=== PATIENT | male | born 1960 | race Caucasian/White ===

== ENCOUNTER 2017-04-23 07:33 | Day surgery (SDC) | payer OTHER ==
[~2017-04-23] VITALS: Ht 185.4 cm; Wt 86.2 kg
[~2017-04-23 07:33] MED LIST: Bactrim 400-801 EACH PO
[2017-04-23] MEDS ORDERED: DIAZ10 (08:19)
[2017-04-23] MEDS ORDERED: TRAM50 (08:19)
== END 2017-04-23 09:40 | disposition home or self-care (01) ==
LOC: ORSCSDS 07:33
PROVIDERS: Surgery
PROC: 0DJD8ZZ Inspection of Lower Intestinal Tract, Via Natural or Artificial Opening Endoscopic (ICD-10-PCS; principal; 2017-04-23 08:45)
DX: Z12.11 Encounter for screening for malignant neoplasm of colon (principal); F32.9 Major depressive disorder, single episode, unspecified; Z87.891 Personal history of nicotine dependence; Z79.899 Other long term (current) drug therapy
CPT/HCPCS: J7120

== ENCOUNTER 2018-04-22 19:24 | Emergency (ER) | payer MEDICARE, OTHER ==
[~2018-04-22] VITALS: Ht 185.4 cm; Wt 83.0 kg
[~2018-04-22 19:24] MED LIST changes: +DIAZ10; +TRAM50
[2018-04-22] MEDS ORDERED: Amitriptyline H10 MG PO (21:18)
== END 2018-04-22 21:25 | disposition home or self-care (01) ==
LOC: ER 19:24
DX: G54.6 Phantom limb syndrome with pain (principal); Z88.0 Allergy status to penicillin; Z79.899 Other long term (current) drug therapy; Z87.891 Personal history of nicotine dependence
CPT/HCPCS: 99283

== ENCOUNTER 2020-04-17 05:59 | Day surgery (SDC) | payer OTHER ==
[~2020-04-17] VITALS: Ht 185.4 cm; Wt 78.2 kg
[~2020-04-17 05:59] MED LIST changes: +Amitriptyline H10 MG PO; -DIAZ10; +DIAZ10 PO
[2020-04-17] MEDS ORDERED: Nexium40 MG PO (06:16)
[2020-04-17] MEDS ORDERED: OMEP20ER PO (06:17)
[2020-04-17] MEDS ORDERED: OXYC5 PO (06:17)
[2020-04-17] MEDS ORDERED: Lyrica25 MG PO (06:18)
--- NOTE | 2020-04-17 06:52 | NUR ---
Ambulatory in Day Surgery History, Chart, Medications and Allergies reviewed before start of procedure. Lungs clear T/O to Auscultation. Pre-Op teaching done. Pt verbalizes understanding.
--- NOTE | 2020-04-17 09:28 | NUR ---
TOLERATING PO PUDDING AND JUCIE WELL. RATES PAIN 4/10 MOSTLY TO NECK, SORENESS. GAVE PERCOCET PER ORDER.
--- NOTE | 2020-04-17 09:55 | NUR ---
0950 PT DCD HOME WITH INSTUCTIONS AND HARD COPY RX Discharge instructions reviewed with patient. Patient verbalizes understanding. Copy given to patient to take home. Patient up to Ambulate independently. Gait steady. Patient States Post-Procedure ride home has been arranged. Discharged via wheelchair to private car for ride home.
[2020-05-22] MEDS ORDERED: Nexium40 MG PO (09:15)
[2020-05-22] MEDS ORDERED: DEXA4 PO (09:15)
[2020-05-22] MEDS ORDERED: Prednisone10 MG PO (09:15)
== END 2020-04-17 22:45 | disposition home or self-care (01) ==
LOC: ORSCMMR 05:59 → ORD 07:30 → ORSCMMR 22:45
PROVIDERS: Surgery
PROC: B5131ZA Fluoroscopy of Right Jugular Veins using Low Osmolar Contrast, Guidance (ICD-10-PCS; principal; 2020-04-17 07:30)
PROC: 05HM33Z Insertion of Infusion Device into Right Internal Jugular Vein, Percutaneous Approach (ICD-10-PCS; principal; 2020-04-17 07:30)
DX: C61 Malignant neoplasm of prostate (principal); I10 Essential (primary) hypertension; Z79.899 Other long term (current) drug therapy
CPT/HCPCS: 77001; A9270; C1788; J0690; J1642; J2250; J2405; J2704; J3010; J7120

== ENCOUNTER 2020-05-22 14:00 | Day surgery (SDC) | payer OTHER ==
[~2020-05-22] VITALS: Ht 185.4 cm; Wt 71.0 kg
[~2020-05-22 14:00] MED LIST changes: +DEXA4 PO; +Lyrica25 MG PO; +Nexium40 MG PO; +OMEP20ER PO; +OXYC5 PO; +Prednisone10 MG PO
--- NOTE | 2020-05-22 15:30 | NUR ---
patient returned to [facility] recovery room. alert and oriented. states that He is comfortable. Neph tube to straight drainage bag with red tinged fluid.
--- NOTE | 2020-05-22 15:56 | NUR ---
patient sitting up having a meal. denies discomfort. neph tube to straight drainage. red tinged fluid in bag.
--- NOTE | 2020-05-22 17:52 | NUR ---
DISCHARGE INSTRUCTIONS GIVEN TO PATIENT. SPOKE TO ADILIA AT DR KIRKPATRICK OFFICE. PATIENT TO CALL HER FOR FURTHER RESOURCES FOR FOLLOW UP CARE FOR HIS NEWLY PLACES NEPH TUBE. PATIENT STATES THAT HE DID NOT RECEIVE ANY INFORMATION FROM HIS DOCTOR IN [place] ON HOW TO CARE FOR IT/HIMSELF POST PROCEDURE. DRESING TO NEPH TUBE INSERTION SITE DRY AND INTACT. SITE SOFT AND NONTENDER. PLACED DRAINAGE BAG TO LEFT LEG WITH LEG STRAP. DRAINAGE IN BAG IS BLOOD TINGED. PATIENT VERBALIZED UNDERSTANDING OF DISCHARGE INSTRUCTIONS AND PRECAUTIONS. HE VERBALIZED UNDERSTANDING ON HOW TO CARE FOR THE NEPH TUBE SYSTEM SHORT TERM UNTILL HE CONTACTS ADILIA. PATIENT TRANSFERRED TO CAR VIA WHEEL CHAIR. HE HAS NO FURTHER QUESTIONS AT THIS TIME. FRIEND IS DRIVING HIM HOME.
== END 2020-05-22 22:58 | disposition home or self-care (01) ==
LOC: MHTC 14:00
DX: N13.30 Unspecified hydronephrosis (principal); C61 Malignant neoplasm of prostate; Z79.899 Other long term (current) drug therapy
CPT/HCPCS: 50432; 76937; 99152; 99153; C1729; C1769; J2250; J3010; J7040; Q9967